=== PATIENT | female | born 1970 | race Two or more races ===

== ENCOUNTER 2025-08-18 11:28 | Emergency (ER) | payer MEDICAID, OTHER ==
[~2025-08-18] VITALS: Ht 157.5 cm; Wt 63.5 kg
[2025-08-18] MEDS ORDERED: IBUPROFEN 600 MG TABLET ONE (12:42)
[2025-08-18] MEDS: IBUPROFEN 600 MG TABLET PO ONE (12:52)
[2025-08-18] MEDS ORDERED: IBUP-1490 PO (13:50)
[2025-08-18 14:07] VITALS: BP 159/88; TEMP 98.3; O2SAT 99
== END 2025-08-18 14:08 | disposition home or self-care (01) ==
LOC: ER 11:33
DX: S13.4XXA Sprain of ligaments of cervical spine, initial encounter (principal); I10 Essential (primary) hypertension; V89.2XXA Person injured in unspecified motor-vehicle accident, traffic, initial encounter; Y93.89 Activity, other specified; Y92.410 Unspecified street and highway as the place of occurrence of the external cause; Y99.8 Other external cause status
CPT/HCPCS: 70450-TC; 72125-TC